=== PATIENT | female | born 1945 | race Caucasian/White ===

== ENCOUNTER 2022-06-25 07:48 | Day surgery (SDC) | payer MEDICARE, MEDICAID ==
[2022-06-25] VITALS (9 sets, daily range): BP systolic 88–111; BP diastolic 54–77
[~2022-06-25] VITALS: Ht 175.3 cm; Wt 77.7 kg
[2022-06-25] MEDS ORDERED: MIDAZolam 1mg/ml 10ml vial IV ONE ×2 (08:25→09:25)
[2022-06-25] MEDS ORDERED: normal saline 1000ml 1,000 ML IV SCH (08:25)
[2022-06-25] MEDS ORDERED: morphine 10mg/ml inj. IV ONE (08:25)
[2022-06-25] MEDS ORDERED: atropine 0.1mg/ml 10ml syringe IV ONE (08:25)
[2022-06-25] MEDS ORDERED: LORazepam 0.5 MG tablet PO ONE (08:25)
[2022-06-25] MEDS ORDERED: CARV-50 PO (08:39)
[2022-06-25] MEDS ORDERED: APIX5TAB3 PO (08:39)
[2022-06-25] MEDS ORDERED: AMIO200T61 PO (08:39)
[2022-06-25] MEDS ORDERED: DEXL60CA6 PO (08:39)
[2022-06-25] MEDS ORDERED: ATOR40TA72 PO (08:39)
[2022-06-25] MEDS ORDERED: LORA10TA7 PO (08:39)
[2022-06-25] MEDS ORDERED: FURO40TA4 PO (08:39)
[2022-06-25] MEDS ORDERED: LISI2.5T14 PO (08:39)
[2022-06-25 08:56] LABS: BASOPHILS # (AUTO) 0.1 X10'3 (0-0.2); BASOPHILS % (AUTO) 1.4 % (0-1); EOSINOPHILS # (AUTO) 0.1 X10'3 (0-0.9); EOSINOPHILS % (AUTO) 1.8 % (0-6); HEMATOCRIT 42.1 % (35.0-45.0); HEMOGLOBIN 14.1 g/dl (12.0-16.0); LYMPHOCYTES # (AUTO) 2.3 X10'3 (1.1-4.8); LYMPHOCYTES % (AUTO) 29.5 % (21-51); MEAN CORPUSCULAR HGB CONC 33.6 g/dL (33.0-36.5); MEAN CORPUSCULAR VOLUME 92.1 FL (78-98); MEAN PLATELET VOLUME 8.2 FL (7.4-10.4); MONOCYTES # (AUTO) 0.9 X10'3 (0-0.9); MONOCYTES % (AUTO) 10.8 % (2-12); NEUTROPHILS # (AUTO) 4.5 X10'3 (1.8-7.7); NEUTROPHILS % (AUTO) 56.5 % (42-75); PLATELET COUNT 214 X10'3 (140-440); RED BLOOD COUNT 4.57 X10'6 (4.20-5.60); RED CELL DISTRIBUTION WIDTH 15.6 % (11.5-14.5); WHITE BLOOD COUNT 7.9 X10'3 (4.5-11.0)
[2022-06-25] MEDS ORDERED: fentaNYL/PF 50MCG/1 ML 2ML syringe IV ONE (09:25)
[2022-06-25 09:36] LABS: ALANINE AMINOTRANSFERASE 51 U/L (12-78); ALBUMIN 3.4 G/DL (3.4-5.0); ALBUMIN/GLOBULIN RATIO 0.9 (1.1-1.5); ALKALINE PHOSPHATASE 83 IU/L (46-116); ANION GAP 8 (8-16); ASPARTATE AMINO TRANSFERASE 34 U/L (10-37); BLOOD UREA NITROGEN 20 MG/DL (7-18); BUN/CREATININE RATIO 17.5 (6.6-38.0); CALCIUM 9.1 MG/DL (8.5-10.1); CHLORIDE 108 MMOL/L (99-107); CREATININE 1.14 MG/DL (0.40-0.90); GLUCOSE 131 MG/DL (70-104); POTASSIUM 3.6 MMOL/L (3.5-5.1); SODIUM 143 MMOL/L (135-145); TOTAL CARBON DIOXIDE 26.8 MMOL/L (24-32); TOTAL PROTEIN 7.1 G/DL (6.4-8.2); eGFR 46 ML/MIN
== END 2022-06-25 10:50 | disposition home or self-care (01) ==
LOC: SSTAY O 07:48
PROVIDERS: ATTEND Student in an Organized Health Care Education/Training Program
DX: I48.91 Unspecified atrial fibrillation (principal); I11.0 Hypertensive heart disease with heart failure; I50.9 Heart failure, unspecified; I45.10 Unspecified right bundle-branch block; E66.9 Obesity, unspecified; Z68.25 Body mass index [BMI] 25.0-25.9, adult; Z87.891 Personal history of nicotine dependence; Z79.899 Other long term (current) drug therapy; Z79.01 Long term (current) use of anticoagulants
CPT/HCPCS: 36415; 80053; 85025; 85610; 92960; 93005; J2250; J3010; J7030